=== PATIENT | female | born 1990 | race Caucasian/White ===

== ENCOUNTER 2017-04-08 12:40 | Emergency (ER) | payer MEDICAID, OTHER ==
[~2017-04-08] VITALS: Ht 157.5 cm; Wt 68.0 kg
[2017-04-08 13:14] VITALS: BP 115/62
== END 2017-04-08 13:50 | disposition home or self-care (01) ==
LOC: ER 12:40
DX: J20.9 Acute bronchitis, unspecified (principal)

== ENCOUNTER 2017-04-17 16:02 | Emergency (ER) | payer OTHER ==
[~2017-04-17] VITALS: Ht 154.9 cm; Wt 61.2 kg
[2017-04-17 16:21] VITALS: BP 124/62
== END 2017-04-17 17:59 | disposition home or self-care (01) ==
LOC: ER 16:07
DX: J20.9 Acute bronchitis, unspecified (principal)

== ENCOUNTER 2017-04-26 12:24 | Emergency (ER) | payer OTHER ==
[~2017-04-26] VITALS: Ht 157.5 cm; Wt 61.2 kg
[2017-04-26 13:33] VITALS: BP 123/103
== END 2017-04-26 13:42 | disposition home or self-care (01) ==
LOC: ER 12:37
DX: J02.9 Acute pharyngitis, unspecified (principal)

== ENCOUNTER 2017-05-05 12:48 | Emergency (ER) | payer OTHER ==
[~2017-05-05] VITALS: Ht 157.5 cm; Wt 59.0 kg
[2017-05-05 13:16] VITALS: BP 115/62
[2017-05-05] MEDS ORDERED: ALBUTEROL SULF 2.5 MG/0.5ML(0.5%) NEB SOLN NEB ONE ×2 (14:00→14:30)
[2017-05-05] MEDS ORDERED: IPRATROPIUM BROM 0.5 MG/2.5ML INH SOL NEB ONE (14:00)
[2017-05-05] MEDS ORDERED: LEVOFLOXACIN 500 MG TAB PO ONE (14:30)
[2017-05-05] MEDS ORDERED: methylPREDNISolone SOD SUCC 125 MG/2 ML VL IM ONE (14:30)
[2017-05-05] MEDS ORDERED: cefTRIAXone SOD 1,000 MG VL IM ONE (14:30)
== END 2017-05-05 15:33 | disposition home or self-care (01) ==
LOC: ER 12:48
DX: J20.9 Acute bronchitis, unspecified (principal)
CPT/HCPCS: 71020; 94640; 99284; J0696; J2930

== ENCOUNTER 2017-07-23 10:52 | Emergency (ER) | payer OTHER ==
[~2017-07-23] VITALS: Ht 160 cm; Wt 61.2 kg
[2017-07-23 11:06] VITALS: BP 124/63
== END 2017-07-23 13:28 | disposition home or self-care (01) ==
LOC: ER 10:52
DX: J20.9 Acute bronchitis, unspecified (principal)

== ENCOUNTER 2021-01-01 14:06 | Emergency (ER) | payer MEDICAID, OTHER ==
[~2021-01-01] VITALS: Ht 154.9 cm; Wt 61.2 kg
[2021-01-01 15:00] VITALS: BP 108/77
== END 2021-01-01 15:41 | disposition home or self-care (01) ==
LOC: ER 14:06
DX: J03.90 Acute tonsillitis, unspecified (principal)